=== PATIENT | male | born 1990 | race Two or more races ===

== ENCOUNTER 2020-05-03 15:18 | Emergency (ER) | payer OTHER ==
[~2020-05-03] VITALS: Ht 188 cm; Wt 99.8 kg
[2020-05-03] MEDS ORDERED: HYDROCODONE/APAP 10/325MG TABLET PO ONE (16:00)
[2020-05-03] MEDS ORDERED: HYDROCODONE/APAP 10/325MG TABLET ONE (16:03)
[2020-05-03 16:22] VITALS: BP 168/96
--- NOTE | 2020-05-03 16:46 | NUR ---
dcPatient discharged to home in stable condition. Written and verbal after care instructions given. Patient verbalizes understanding of instruction.
== END 2020-05-03 16:46 | disposition home or self-care (01) ==
LOC: ER 15:25
DX: M25.561 Pain in right knee (principal); R22.41 Localized swelling, mass and lump, right lower limb
CPT/HCPCS: 73564-TC

== ENCOUNTER 2020-05-04 19:57 | Emergency (ER) | payer OTHER ==
[~2020-05-04] VITALS: Ht 188 cm; Wt 99.8 kg
[2020-05-04 20:00] VITALS: BP 132/64
--- NOTE | 2020-05-04 21:36 | NUR ---
PT NOT IN WAITING ROOM FOR BED ASSIGNMENT.
== END 2020-05-04 22:23 | disposition home or self-care (01) ==
LOC: ER 20:02
DX: Z53.21 Procedure and treatment not carried out due to patient leaving prior to being seen by health care provider (principal); M25.561 Pain in right knee; R22.41 Localized swelling, mass and lump, right lower limb

== ENCOUNTER 2020-05-05 13:04 | Emergency (ER) | payer OTHER ==
[~2020-05-05] VITALS: Ht 188 cm; Wt 99.8 kg
[2020-05-05 13:33] VITALS: BP 138/98
[2020-05-05] MEDS: KETOROLAC TROMETHAMINE INJ 60 MG/2 ML VIAL IM ONE (14:45)
[2020-05-05] MEDS ORDERED: KETOROLAC TROMETHAMINE INJ 30 MG/ML VIAL ONE (15:15)
== END 2020-05-05 16:16 | disposition home or self-care (01) ==
LOC: ER 13:05
DX: M70.51 Other bursitis of knee, right knee (principal); Y93.89 Activity, other specified
CPT/HCPCS: 73700; 96372; 99284; J1885

== ENCOUNTER 2021-12-16 09:49 | Inpatient (IN) | payer OTHER ==
[~2021-12-16] VITALS: Ht 172.7 cm; Wt 86.2 kg
--- NOTE | 2021-12-16 09:50 | NUR ---
TO ER BE 11, BIB RA [facility] FROM HOME,SEIZURE WITNESSED BY FAMILY,LAST DRINK WAS 2 DAYS AGO BLOOD SUGAR 94 PROGRAM MGR, AAOX3, BREATHING EVEN AND NON LABORED, CONNECTED TO MONITOR, AWAITING MD ORDERS
[2021-12-16] MEDS ORDERED: IV NS 0.9% 1,000 ML BAG IV ONE (10:00)
--- NOTE | 2021-12-16 10:00 | NUR ---
SALINE LOCK ESTABLISHED, BLOOD DRAWN AND SENT TO LAB
--- NOTE | 2021-12-16 10:01 | NUR ---
COVID SWAB DONE AND SENT TO LAB
[2021-12-16 10:11] LABS: BASOPHILS # (AUTO) 0.1 K/uL (0.0-0.2); BASOPHILS % (AUTO) 1.1 % (0.0-2.0); EOSINOPHILS % (AUTO) 0.5 % (0.0-6.0); HEMATOCRIT 40 % (39-51); HEMOGLOBIN 13.2 g/dL (13.5-17.5); LYMPHOCYTES # (AUTO) 2.3 K/uL (0.8-4.8); LYMPHOCYTES % (AUTO) 23.5 % (20.0-44.0); MEAN CORPUSCULAR HGB CONC 33 g/dl (31.0-36.0); MEAN CORPUSCULAR VOLUME 95 fL (80-96); MONOCYTES # (AUTO) 0.7 K/uL (0.1-1.30); NEUTROPHILS # (AUTO) 6.7 K/uL (1.8-8.9); NEUTROPHILS % (AUTO) 67.9 % (43.0-81.0); PLATELET COUNT (AUTO) 270 K/uL (150-450); RED BLOOD CELL COUNT(AUTO) 4.21 MIL/uL (4.5-6.0); WHITE BLOOD COUNT (AUTO) 9.8 K/uL (4.3-11.0)
[2021-12-16] MEDS ORDERED: LORAZEPAM INJ 2 MG/ML VIAL ONE (10:11)
[2021-12-16] MEDS ORDERED: FOLIC ACID 1 MG TABLET ONE (10:12)
[2021-12-16] MEDS ORDERED: THIAMINE HCL 100 MG TABLET ONE (10:13)
[2021-12-16] MEDS ORDERED: FOLIC ACID 1 MG TABLET PO ONE (10:30)
[2021-12-16] MEDS ORDERED: THIAMINE HCL 100 MG TABLET PO ONE (10:30)
[2021-12-16] MEDS ORDERED: ONDANSETRON HCL/PF 4 MG/2 ML VIAL IV ONE (10:30)
[2021-12-16] MEDS ORDERED: LORAZEPAM INJ 2 MG/ML VIAL IV ONE (10:30)
[2021-12-16 10:43] LABS: CALCIUM, SERUM 8.4 mg/dL (8.5-10.1); CREATININE 0.9 mg/dL (0.6-1.3); POTASSIUM 3.6 mmol/L (3.5-5.1)
[2021-12-16] MEDS ORDERED: ONDANSETRON HCL/PF 4 MG/2 ML VIAL ONE (10:45)
[2021-12-16 10:49] LABS: ALBUMIN 3.5 g/dL (3.4-5.0); BILIRUBIN,DIRECT 0.5 mg/dL (0.0-0.2)
[2021-12-16] MEDS ORDERED: GABA300C PO (10:58)
--- NOTE | 2021-12-16 11:24 | NUR ---
[facility] CALLED FAILURE ANALYSIS TECHNICIAN PAGED.
[2021-12-16] MEDS ORDERED: LORAZEPAM INJ 2 MG/ML VIAL IV PRN (13:30)
[2021-12-16] MEDS ORDERED: ONDANSETRON HCL/PF 4 MG/2 ML VIAL IVP PRN (13:30)
[2021-12-16] MEDS ORDERED: MAG HYDROX/AL HYDROX/SIMETH 30 ML UDC PO PRN (13:30)
--- NOTE | 2021-12-16 13:37 | NUR ---
REPORT GIVEN TO ANTONIO RAMEY [id number] FOR SCAR
--- NOTE | 2021-12-16 14:15 | NUR ---
CUSTOMER INSIGHT ANALYSTBUSINESS OBJECTS ANALYST NOTES PATIENT LAYING IN BED, A/O X 4, ABLE TO MAKE NEEDS KNOWN. ADMITTED FOR ETOH WITHDRAWAL AND HX WITHDRAWAL SEIZURE AT HOME. SOME TREMORS PRESENT IN BILATERAL UPPER EXTREMITIES. TOLERATING WELL ON ROOM AIR WITH NO S/S RESPIRATORY DISTRESS. L AC # 20 G SL CLEAN, INTACT, AND INFUSING D5 1/2 NS @ 75 ML/HR. TELE MONITOR IN PLACE READING NSR 90. SAFETY MEASURES IN PLACE: BED IN LOWEST LOCKED POSITION, SIDE RAILS UP X 2, CALL LIGHT WITHIN REACH. WILL CONTINUE TO MONITOR.
[2021-12-16] MEDS: GABAPENTIN 300 MG CAPSULE PO SCH (16:49)
[2021-12-16] MEDS: IV D5/0.45 NACL 1,000 ML IV PRN (16:49)
--- NOTE | 2021-12-16 18:52 | NUR ---
[facility] NURSE CLOSING NOTES PATIENT LAYING IN BED, A/O X 4, ABLE TO MAKE NEEDS KNOWN. TOLERATING WELL ON ROOM AIR WITH NO S/S RESPIRATORY DISTRESS. L AC # 20 G SL CLEAN, INTACT, AND INFUSING D5 1/2 NS @ 75 ML/HR. TELE MONITOR IN PLACE READING SINUS TACH 102. SAFETY MEASURES IN PLACE: BED IN LOWEST LOCKED POSITION, SIDE RAILS UP X 2, CALL LIGHT WITHIN REACH. ALL NEEDS MET. WILL ENDORSE TO SHEET METAL WORKER MAINTENANCE FOR SCAR. Addendum: 12/16/21 at 1854 by ANTONIO DEAN RN SEIZURE PRECAUTIONS IN PLACE: BILATERAL SIDE RAILS PADDED WITH BLANKETS
--- NOTE | 2021-12-16 19:35 | NUR ---
VICE PRESIDENT PAYMENT NOTES RECEIVED ON BED A/O X4,BREATHING EASY,NO SOB,PRESENT IVF INFUSING WELL VIA IVP.VISITOR AT BEDSIDE.NOTED HAND TREMORS POSSIBLE FROM ALCOHOL WITHDRAWAL.SIDE RAILS PADDED FOR SEIZURE PRECAUTION AND SAFETY.CALL LIGHT IN REACH,NEEDS ANTICIPATED..
[2021-12-16 20:00] VITALS: BP 137/68
[2021-12-16 20:28] VITALS: BP 137/68
[2021-12-16] MEDS: ACETAMINOPHEN 325 MG TABLET PO PRN (21:53)
--- NOTE | 2021-12-16 21:53 | NUR ---
AREA SECRETARY NOTES HAVING HEADACHE,TYLENOL 650MG PO GIVEN ORDERED FOR MILD PAIN
[2021-12-16] MEDS ORDERED: MAGNESIUM HYDROXIDE 30 ML UDC PO PRN (22:00)
[2021-12-17 00:04] VITALS: BP 124/70
[2021-12-17 00:15] VITALS: BP 124/70
[2021-12-17 04:00] VITALS: BP 131/92
[2021-12-17] MEDS: IV D5/0.45 NACL 1,000 ML IV PRN (04:44)
[2021-12-17 06:18] LABS: BASOPHILS # (AUTO) 0.1 K/uL (0.0-0.2); BASOPHILS % (AUTO) 0.8 % (0.0-2.0); EOSINOPHILS % (AUTO) 2.8 % (0.0-6.0); HEMATOCRIT 37 % (39-51); HEMOGLOBIN 12.7 g/dL (13.5-17.5); LYMPHOCYTES # (AUTO) 1.2 K/uL (0.8-4.8); LYMPHOCYTES % (AUTO) 13.4 % (20.0-44.0); MEAN CORPUSCULAR HGB CONC 34 g/dl (31.0-36.0); MEAN CORPUSCULAR VOLUME 93 fL (80-96); MONOCYTES # (AUTO) 0.6 K/uL (0.1-1.30); MONOCYTES % (AUTO) 7.1 % (2.0-12.0); NEUTROPHILS # (AUTO) 6.7 K/uL (1.8-8.9); NEUTROPHILS % (AUTO) 75.9 % (43.0-81.0); PLATELET COUNT (AUTO) 200 K/uL (150-450); RED BLOOD CELL COUNT(AUTO) 4.01 MIL/uL (4.5-6.0); WHITE BLOOD COUNT (AUTO) 8.8 K/uL (4.3-11.0)
--- NOTE | 2021-12-17 06:21 | NUR ---
ASSEMBLY LEAD PERSON NOTES REFUSED MORNING LAB DRAW,ASSEMBLER SKYLIGHTS WILL COME BACK LATER.COMMENTED ' I DONT CARE IF I '
--- NOTE | 2021-12-17 06:23 | NUR ---
HAIRSPRING INSPECTOR NOTES STILL UNCONTROLLED AFIB,RATE OF 108,DENIES ANY CHEST DISCOMFORTS.TRAVELING SECRETARY WILL COME LATER FOR MORNING LAB DRAW.MEPILEX APPLIED TO SACRAL AREA.ALL DUE MEDS ADMINISTERED.CALL LIGHT IN REACH,NEEDS ATTENDED. Addendum: 12/17/21 at 0629 by ISABELLA HERNDON RN NOTES NOT FOR THIS PATIENT
--- NOTE | 2021-12-17 06:36 | NUR ---
DIRECTOR SUPPLY CHAIN NOTES SLEEP WELL AT NIGHT.NO SEIZURE ACTIVITY NOTED.AMBULATE WITH STEADY GAIT,SIDE RAILS PADDED FOR SAFETY,IN NO ACUTE DISTRESS,CALL LIGHT IN REACH,NEEDS ATTENDED.
[2021-12-17 07:12] LABS: CALCIUM, SERUM 8.2 mg/dL (8.5-10.1); CREATININE 0.7 mg/dL (0.6-1.3); MAGNESIUM 1.6 mg/dL (1.8-2.4); PHOSPHORUS 2.6 mg/dL (2.5-4.9); POTASSIUM 3.8 mmol/L (3.5-5.1)
--- NOTE | 2021-12-17 07:27 | NUR ---
RN OPENING NOTES RECEIVED PATIENT IN BED AWAKE, A/O X4, VERBALLY RESPONSIVE. NO SIGNS OF ACUTE DISTRESS NOTED. STABLE ON ROOM AIR, NO SOB NOTED, BREATHING EVEN AND UNLABORED. ON TELE MONITOR SHOWING SR, HR @ 69. DENIES ANY PAIN AT THIS TIME. NOTED WITH IV ACCESS ON LEFT ANTECUBITAL #20G, INTACT AND PATENT WITH D5 1/2 NS @75ML/HR RUNNING. SAFETY MEASURE IN PLACE, BED IN LOWEST AND LOCKED POSITION, SIDE RAILS UP X2, CALL LIGHT PLACED WITHIN EASY REACH. WILL CONTINUE TO MONITOR PATIENT.
[2021-12-17] MEDS ORDERED: PANTOPRAZOLE 40 MG TABLET.DR PO SCH (07:30)
[2021-12-17 08:00] VITALS: BP 133/77
[2021-12-17] MEDS: GABAPENTIN 300 MG CAPSULE PO SCH ×2 (08:15→12:55)
[2021-12-17] MEDS: ACETAMINOPHEN 325 MG TABLET PO PRN (08:15)
[2021-12-17] MEDS ORDERED: THIAMINE HCL 100 MG TABLET PO SCH (09:00)
[2021-12-17] MEDS ORDERED: FOLIC ACID 1 MG TABLET PO SCH (09:00)
[2021-12-17] MEDS: Magnesium 1GM/D5W 100ML PREMIX 100 ML IV SCH ×2 (09:12→10:17)
--- NOTE | 2021-12-17 14:59 | NUR ---
BUSINESS ADMINISTRATION INSTRUCTOR NOTE PATIENT DISCHARGED HOME IN STABLE CONDITION. PATIENT AWAKE, ALERT AND ORIENTED X4, ABLE TO MAKE NEEDS KNOWN. NO SIGNS OF ACUTE DISTRESS NOTED. IV ACCESS ON LEFT AC REMOVED. NO BLEEDING NOTED, PRESSURE DRESSING APPLIED TO SITE. ARM NAME BAND REMOVED. ALL BELONGINGS ACCOUNTED FOR. FORM SIGNED BY PATIENT. EXIT CARE FOLDER GIVEN TO PATIENT. HEALTH TEACHINGS PROVIDED TO PATIENT WITH VERBALIZATION OF UNDERSTANDING. PATIENT LEFT UNIT AMBULATORY @1455, WILL BE PICKED UP BY [facility] VIA PRIVATE CAR. CN AWARE OF DISCHARGE.
== END 2021-12-17 14:55 | disposition home or self-care (01) | DRG 53 ==
LOC: ER 09:54 → TELE 13:25 → MED 12-17 09:01
DX: G40.509 Epileptic seizures related to external causes, not intractable, without status epilepticus (principal); F10.139 Alcohol abuse with withdrawal, unspecified; Z20.822 Contact with and (suspected) exposure to COVID-19; Y90.4 Blood alcohol level of 80-99 mg/100 ml; F17.200 Nicotine dependence, unspecified, uncomplicated; Z79.899 Other long term (current) drug therapy; F12.10 Cannabis abuse, uncomplicated
CPT/HCPCS: 36415; 71045-TC; 80048-TC; 80076-TC; 82962-TC; 83735-TC; 84100-TC; 85025-TC; 87081-TC; C9803; G0378; G0480; J2060; J2405; J3475; J3490; J7030

== ENCOUNTER 2024-03-07 15:21 | Inpatient (IN) | payer OTHER ==
[~2024-03-07] VITALS: Ht 188 cm; Wt 86.2 kg
[~2024-03-07 15:21] MED LIST: GABA300C PO
[2024-03-07] MEDS ORDERED: ONDANSETRON HCL/PF 4 MG/2 ML VIAL ONE (15:45)
[2024-03-07] MEDS ORDERED: LORAZEPAM INJ 2 MG/ML VIAL ONE ×2 (15:45→18:32)
[2024-03-07] MEDS: IV NS 0.9% 1,000 ML BAG IV ONE (15:57)
[2024-03-07 15:58] LABS: BASOPHILS # (AUTO) 0.1 K/uL (0.0-0.2); BASOPHILS % (AUTO) 2.2 % (0.0-2.0); EOSINOPHILS % (AUTO) 0.7 % (0.0-6.0); HEMATOCRIT 40 % (39-51); HEMOGLOBIN 13.1 g/dL (13.5-17.5); LYMPHOCYTES # (AUTO) 0.9 K/uL (0.8-4.8); LYMPHOCYTES % (AUTO) 20.2 % (20.0-44.0); MEAN CORPUSCULAR HEMOGLOBIN 29 PG (26.0-33.0); MEAN CORPUSCULAR HGB CONC 33 g/dl (31.0-36.0); MEAN CORPUSCULAR VOLUME 90 fL (80-96); MONOCYTES # (AUTO) 0.4 K/uL (0.1-1.30); MONOCYTES % (AUTO) 8.4 % (2.0-12.0); NEUTROPHILS # (AUTO) 3.2 K/uL (1.8-8.9); NEUTROPHILS % (AUTO) 68.5 % (43.0-81.0); PLATELET COUNT (AUTO) 182 K/uL (150-450); RED BLOOD CELL COUNT(AUTO) 4.45 MIL/uL (4.5-6.0); RED CELL DISTRIBUTION WIDTH 17.1 % (11.5-15.0); WHITE BLOOD COUNT (AUTO) 4.6 K/uL (4.3-11.0)
[2024-03-07] MEDS: LORAZEPAM INJ 2 MG/ML VIAL IVP ONE (15:58)
[2024-03-07] MEDS: ONDANSETRON HCL/PF - ER 4 MG/2 ML VIAL IV ONE (15:58)
[2024-03-07 16:06] LABS: CALCIUM, SERUM 8.9 mg/dL (8.5-10.1); POTASSIUM 3.6 mmol/L (3.5-5.1)
[2024-03-07 16:19] LABS: BILIRUBIN,DIRECT 0.4 mg/dL (0.0-0.2); TOTAL PROTEIN, SERUM 8.7 g/dL (6.4-8.2)
[2024-03-07] MEDS: LORAZEPAM INJ 2 MG/ML VIAL IV ONE ×2 (18:36→23:35)
[2024-03-07] MEDS ORDERED: LORAZEPAM INJ 2 MG/ML VIAL IV PRN (22:00)
[2024-03-07] MEDS ORDERED: ONDANSETRON HCL/PF 4 MG/2 ML VIAL IVP PRN (22:00)
[2024-03-07] MEDS ORDERED: ACETAMINOPHEN 325 MG TABLET PO PRN (22:00)
[2024-03-07] MEDS ORDERED: MAG HYDROX/AL HYDROX/SIMETH 30 ML UDC PO PRN (22:00)
[2024-03-07] MEDS ORDERED: Z GUARD REMEDY 4 OZ OINT TP PRN (22:00)
[2024-03-07] MEDS ORDERED: MAGNESIUM HYDROXIDE 30 ML UDC PO PRN (22:00)
[2024-03-07] MEDS: IV NS 0.9% 1,000 ML IV PRN (22:46)
[2024-03-07] MEDS: CHLORDIAZEPOXIDE HCL 25 MG CAPSULE PO SCH (23:00)
[2024-03-07] MEDS: GABAPENTIN 300 MG CAPSULE PO SCH (23:01)
[2024-03-07] MEDS ORDERED: Thiamine 100 MG/ML VIAL ONE (23:05)
[2024-03-07] MEDS ORDERED: LEVETIRACETAM (500MG) 500 MG/5 ML VIAL IV ONE (23:05)
[2024-03-07 23:40] VITALS: BP 125/90; O2SAT 97
[2024-03-08] MEDS: LEVETIRACETAM (500MG) 500 MG in IV NS 0.9% 100 ML IV SCH (00:04)
[2024-03-08] MEDS: Thiamine 100 MG in IV D5W 50 ML IV SCH (00:04)
[2024-03-08 00:05] VITALS: BP_SYST 126; BP_SYST 130; BP_DIAS 89; BP_DIAS 92; O2SAT 97; O2SAT 98
[2024-03-08 00:55] VITALS: BP 131/85; O2SAT 98
[2024-03-08 04:00] VITALS: BP 144/100; TEMP 98.8; O2SAT 98
[2024-03-08 05:59] LABS: BASOPHILS # (AUTO) 0.1 K/uL (0.0-0.2); BASOPHILS % (AUTO) 1.5 % (0.0-2.0); EOSINOPHILS # (AUTO) 0.1 K/uL (0.0-0.7); EOSINOPHILS % (AUTO) 1.8 % (0.0-6.0); HEMATOCRIT 36 % (39-51); HEMOGLOBIN 11.9 g/dL (13.5-17.5); LYMPHOCYTES # (AUTO) 1.1 K/uL (0.8-4.8); LYMPHOCYTES % (AUTO) 26.6 % (20.0-44.0); MEAN CORPUSCULAR HEMOGLOBIN 29 PG (26.0-33.0); MEAN CORPUSCULAR HGB CONC 33 g/dl (31.0-36.0); MEAN CORPUSCULAR VOLUME 88 fL (80-96); MONOCYTES # (AUTO) 0.5 K/uL (0.1-1.30); MONOCYTES % (AUTO) 11.7 % (2.0-12.0); NEUTROPHILS # (AUTO) 2.5 K/uL (1.8-8.9); NEUTROPHILS % (AUTO) 58.4 % (43.0-81.0); PLATELET COUNT (AUTO) 137 K/uL (150-450); RED BLOOD CELL COUNT(AUTO) 4.13 MIL/uL (4.5-6.0); RED CELL DISTRIBUTION WIDTH 17.1 % (11.5-15.0); WHITE BLOOD COUNT (AUTO) 4.3 K/uL (4.3-11.0)
[2024-03-08 06:18] LABS: ALBUMIN 3.3 g/dL (3.4-5.0); BILIRUBIN,TOTAL 1.1 mg/dL (0.2-1.0); CALCIUM, SERUM 8.6 mg/dL (8.5-10.1); CREATININE 0.6 mg/dL (0.6-1.3); MAGNESIUM 1.4 mg/dL (1.8-2.4); PHOSPHORUS 3.1 mg/dL (2.5-4.9); POTASSIUM 3.6 mmol/L (3.5-5.1); TOTAL PROTEIN, SERUM 7.7 g/dL (6.4-8.2)
[2024-03-08 08:00] VITALS: BP 135/100; TEMP 97.5; O2SAT 98
[2024-03-08] MEDS: THIAMINE HCL 100 MG TABLET PO SCH (09:15)
[2024-03-08] MEDS: PANTOPRAZOLE 40 MG VIAL IV SCH (09:15)
[2024-03-08] MEDS: MAGNESIUM OXIDE 400 MG TABLET PO SCH (11:31)
[2024-03-08 12:00] VITALS: BP 109/97; TEMP 97.7; O2SAT 98
[2024-03-08] MEDS ORDERED: THIA100T74 PO (12:41)
[2024-03-08] MEDS ORDERED: CYAN500T64 PO (12:41)
[2024-03-08] MEDS ORDERED: FOLI0.4T6 PO (12:41)
== END 2024-03-08 17:00 | disposition home or self-care (01) | DRG 53 ==
LOC: ER 15:25 → TELE 20:41
PROVIDERS: ADMIT Nurse Practitioner Acute Care
DX: R56.9 Unspecified convulsions (principal); F10.131 Alcohol abuse with withdrawal delirium; R74.01 Elevation of levels of liver transaminase levels; Z79.899 Other long term (current) drug therapy; Z88.6 Allergy status to analgesic agent; R79.89 Other specified abnormal findings of blood chemistry; Y90.0 Blood alcohol level of less than 20 mg/100 ml; Z87.39 Personal history of other diseases of the musculoskeletal system and connective tissue; V89.2XXS Person injured in unspecified motor-vehicle accident, traffic, sequela
CPT/HCPCS: 36415; 70450-TC; 71045-TC; 80048-TC; 80053-TC; 80076-TC; 83735-TC; 84100-TC; 85025-TC; A4223; G0378; G0480; J1953; J2060; J2405; J2470; J3411; J7030; J7060